=== PATIENT | male | born 1960 | race Caucasian/White ===

== ENCOUNTER 2023-03-05 18:21 | Emergency (ER) | payer OTHER ==
[~2023-03-05] VITALS: Ht 180.3 cm; Wt 69.0 kg
[2023-03-05 18:59] VITALS: BP 142/79; PULSE 77; RESP 18; TEMP 98.7; O2SAT 98
[2023-03-05 21:06] VITALS: BP 138/78; PULSE 75; RESP 16; TEMP 98.7; O2SAT 98
== END 2023-03-05 21:06 | disposition home or self-care (01) ==
LOC: MED 18:21
DX: Z48.89 Encounter for other specified surgical aftercare (principal); Z85.118 Personal history of other malignant neoplasm of bronchus and lung
CPT/HCPCS: 71045; 99283